=== PATIENT | male | born 1995 | race Two or more races ===

== ENCOUNTER 2024-08-05 00:59 | Emergency (ER) | payer OTHER ==
[~2024-08-05] VITALS: Ht 170.2 cm; Wt 80.0 kg
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
[2024-08-05 01:32] VITALS: BP 124/91; PULSE 74; RESP 18; O2SAT 98
[2024-08-05 01:37] LABS: Basophils # (auto) 0 10 ^3/uL (0-0.2); Eosinophils # (auto) 0.2 10 ^3/uL (0-0.8); Lymphocytes # (auto) 1.9 10 ^3/uL (0.4-5.4); Lymphocytes % (auto) 42.9 % (10.0-50.0); Neutrophils # (auto) 1.9 10 ^3/uL (1.6-8.6); Platelet Count (auto) 302 10^3/uL (140-450)
[2024-08-05 01:38] LABS: Basophils % (auto) 0.9 % (0.0-2.0); Eosinophils % (auto) 3.8 % (0.0-7.0); Hematocrit 51.9 % (41.0-53.0); Mean Corpuscular Hemoglobin 32.7 pg (28.0-32.0); Mean Corpuscular Hgb Conc. 34.6 g/dL (32.0-36.0); Mean Corpuscular Volume 94.4 fL (80.0-100.0); Monocytes # (auto) 0.4 10 ^3/uL (0-1.3); Monocytes % (auto) 8.3 % (0.0-12.0); Neutrophils % (auto) 44.1 % (37.0-80.0); Nucleated Red Blood Cells % 0.3 %; Red Blood Cells 5.49 10^6/uL (4.5-5.90); Red Cell Distribution Width 13.6 % (11.8-14.3); White Blood Cell 4.4 10^3/uL (4.4-10.8)
[2024-08-05 01:44] LABS: Chloride 105 mmol/L (98-107)
[2024-08-05 01:45] LABS: Anion Gap 10 (5-15); Carbon Dioxide 27 mmol/L (20-31); Sodium 142 mmol/L (136-145)
[2024-08-05 01:46] LABS: Calcium 10.2 mg/dL (8.7-10.4)
[2024-08-05 01:51] LABS: Blood Alcohol 3.2 mg/dL (<10); Blood Urea Nitrogen 12 mg/dL (9-23); Glucose 96 mg/dL (74-106)
[2024-08-05 02:03] LABS: Potassium 3.2 mmol/L (3.5-5.1)
--- NOTE | 2024-08-09 17:03 | ECG ---
[facility] Test Date: 2024-08-05 Test Time: 01:08:03 Pat Name: MATEUSZ BOWLES Department: ER Room: Gender: M Medical Assistant Cardiology: : 1995 Requested By: BRENNA MOE Order Number: [id number] Reading MD: Howard Chase Measurements Intervals [place] Rate: 69 P: 22 FL: 146 QRS: 87 QRSD: 104 T: 40 QT: 393 QTc: 421 Interpretive Statements Sinus rhythm Electronically Signed On 08-10-2024 12:06:19 PST by Howard Chase Please click the below link to view image of tracing.
== END 2024-08-05 01:31 | disposition left against medical advice (07) ==
LOC: ER 00:59
DX: R45.851 Suicidal ideations (principal); F12.90 Cannabis use, unspecified, uncomplicated
CPT/HCPCS: 36415; 80048; 80320; 84484; 85025; 93005; 99291